=== PATIENT | female | born 1960 | race Caucasian/White ===

== ENCOUNTER 2022-06-20 18:50 | Inpatient (IN) ==
[2022-06-20 20:19] LABS: Basophils # (auto) 0.05 K/uL (0-0.2); Basophils % (auto) 0.5 %; Eosinophils # (auto) 0.35 K/uL (0-0.50); Eosinophils % (auto) 3.7 %; Hematocrit (blood only) 35.8 % (34.1-44.9); Hemoglobin 11.5 g/dl (12.0-16.0); Immature Granulocytes # (auto) 0.05 K/uL (0.00-0.02); Immature Granulocytes % (auto) 0.5 %; Lymphocytes # (auto) 1.79 K/uL (1.2-3.4); Lymphocytes % (auto) 18.8 %; Mean Corpuscular Hemoglobin 27.8 pg (25.0-34.0); Mean Corpuscular Hgb Conc 32.1 g/dL (32.0-36.0); Mean Corpuscular Volume 86.7 fL (80.0-100.0); Mean Platelet Volume 12.2 fL (9.4-12.3); Monocytes # (auto) 0.73 K/uL (0.24-0.82); Monocytes % (auto) 7.7 %; Neutrophils # (auto) 6.57 K/uL (1.4-6.5); Neutrophils % (auto) 68.8 %; Platelet Count 256 K/uL (130-400); RDW Coefficient of Variation 15.1 % (11.5-14.5); RDW Standard Deviation 48.1 fL (36.4-46.3); Red Blood Count 4.13 M/uL (3.93-5.22); White Blood Count 9.54 K/ul (4.8-10.8)
[2022-06-20 20:53] LABS: Albumin Globulin Ratio 1.2 (0.9-2); Albumin Level 3.8 gm/dl (3.4-5.0); BUN Creatinine Ratio 10.9 (10-20); Bilirubin,Total 0.9 mg/dl (0.2-1.0); Calcium 13.1 mg/dl (8.5-10.1); Creatinine Clr Calc Pharmacy 25.9 ml/min; Est GFR (African American) 21.4 ml/min; Est GFR (Non-African American) 18.5 ml/min; Globulin 3.1 gm/dl (2.5-4.0); Magnesium 1.4 mg/dl (1.7-2.4); Potassium 3.2 mmol/L (3.5-5.1); Total Protein 6.9 gm/dl (6.0-8.3)
[2022-06-20] MEDS ORDERED: POTASSIUM CHLORIDE CRTAB 20 MEQ TABCR PO STA (21:32)
[2022-06-20] MEDS ORDERED: SODIUM CHLORIDE 0.9% 1000ML 1,000 ML IV ONE (21:34)
--- NOTE | 2022-06-20 21:35 | Emergency Department Note ---
Impression & Plan Hypercalcemia ADMIT ED Provider Note HPI: The patient is a 62-year-old female with history of chronic kidney disease, hypercalcemia, who presents to the emergency department over concern for hypercalcemia on outpatient lab work. Patient was seen by her transportation solutions manager jose oreilly, outpatient lab work was obtained, patient was noted to have hypercalcemia at 13.3 and was referred to the emergency room for further management. On my initial assessment the patient is resting comfortably in bed, she does state that she has had some muscle spasms in her lower extremities r ecently but otherwise has been largely asymptomatic. She appears comfortable on my exam, she is hemodynamically stable and saturating well on room air on arrival, she is afebrile on arrival. ROS: -Neuro: Hypercalcemia on outpatient lab work -MSK: Myalgias *10 point review systems was conducted and is otherwise negative unless stated above *Outpatient medications and allergy history reviewed PE: General: Alert, NAD HEENT: Normocephalic, atraumatic Eyes: Extraocular eye movement is intact, no scleral erythema Pulmonary: Clear to auscultation bilaterally, no wheezing Cardio: Regular rate and rhythm GI: Abdomen is soft, nontender : No suprapubic tenderness MSK: No evidence of trauma or malformation of the extremities, no edema Skin: No evidence of rash Neuro: Alert, no focal deficits 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 EKG shows atrial fibrillation which the patient does have a his tory, per chart review patient's hypercalcemia is not thought to be mediated by PTH, likely thought to be secondary to an underlying granulomatous disease. I discussed the above findings with the on-call hospitalist, Dr. Beaulieu, the patient was admitted in stable condition for further care. Patient was in agreement to the above plan and she was admitted in stable condition. Diagnosis: 1. Hypercalcemia, acute on chronic 2. Hypomagnesemia 3. Hypokalemia 4. Acute on chronic kidney disease Disposition: Admission Marcus Maddox DO Emergency Medicine Past Med/Surg History Medical History (Updated 06/21/22 @ 00:48 by Marcus Maddox DO) Acute kidney injury Anemia due to chronic kidney disease Atrial fibrillation Chronic kidney disease, stage 4 (severe) Diabetes type 2, controlled Fatigue Hypercalcemia Hypokalemia Lymphadenopathy Type 2 diabetes mellitus, with long-term current use of insulin Vitamin D deficiency Social History Smoking Status: Never smoker Hx Alcohol Use: No Feels Safe at Home: Yes Allergies Allergies Allergy/AdvReac Type Severity Reaction Status Date / Time clarithromycin Allergy Unknown Unverified 06/20/22 11:09 ibuprofen Allergy Verified 06/20/22 11:09 diltiazem [From Cardizem] AdvReac Unknown Headache Unverified 06/20/22 11:09 metformin AdvReac Unknown Nausea Unverified 06/20/22 11:09 naproxen AdvReac Unknown hives Unverified 06/20/22 11:09 nifedipine AdvReac Unknown Headache Unverified 06/20/22 11:09 quinapril AdvReac Unknown Cough Unverified 06/20/22 11:09 Home Meds Home Medications Medication Instructions Recorded Confirmed allopurinol 100 mg tablet 100 mg PO DAILY 04/29/19 06/20/22 venlafaxine 150 mg 150 mg PO DAILY 04/29/19 06/20/22 capsule,extended release 24 hr atorvastatin 40 mg tablet (Lipitor) 40 mg PO DAILY 07/08/19 06/20/22 bupropion HCl 150 mg 24 hr tablet, 150 mg PO QAM 01/04/20 06/20/22 extended release (Wellbutrin XL) aspirin 81 mg tablet,delayed 81 mg PO DAILY 01/08/22 06/20/22 release (Adult Low Dose Aspirin) insulin aspart U-100 100 unit/mL See Rx Instructions subcut TID 01/08/22 06/20/22 (3 mL) subcutaneous pen (Novolog Flexpen U-100 Insulin aspart) apixaban 5 mg tablet (Eliquis) 5 mg PO BID 04/23/22 06/20/22 buspirone 5 mg tablet 5 mg PO TID 06/20/22 06/20/22 carvedilol 25 mg tablet 25 mg PO BID 06/20/22 06/20/22 losartan 50 mg tablet 25 mg PO DAILY 06/20/22 06/20/22 prednisone 10 mg tablet 40 mg PO DAILY 06/20/22 06/20/22 Previous Rx's Medication Instructions Recorded pen needle, diabetic 32 gauge x #500 ea 07/05/21 5/32" (BD Lucinda 2nd Gen Pen Needle) insulin glargine 100 unit/mL (3 32 unit (0.32 mL) subcut BID #60 mL 04/04/22 mL) subcutaneous pen (Basaglar KwikPen U-100 Insulin) pantoprazole 40 mg tablet,delayed 40 mg PO DAILY #30 tabs 05/07/22 release (Protonix) potassium chloride 20 mEq 20 meq PO DAILY #30 tabs 06/14/22 tablet,extended release empagliflozin 10 mg tablet 10 mg PO DAILY #90 tabs 06/20/22 (Jardiance) fluconazole 50 mg tablet 50 mg PO DAILY #90 tabs 06/20/22 Results & Data (ED) Vital Signs Vital Signs - 24 hr 06/20/22 18:59 06/20/22 21:56 06/20/22 21:45 Temperature 36.6 C Temperature Source Temporal Artery Scan Pulse Rate 83 88 Pulse Rate [Apical] 86 Pulse Rate from SpO2 Sensor Respiratory Rate 18 18 Respiratory Effort / Characteristics Non-Labored Spontaneous Respiratory Depth Normal Blood Pressure 119/80 Blood Pressure [Left Arm] 156/89 H Blood Pressure Mean 93 Blood Pressure Mean [Left Arm] 111 Pulse Oximetry 94 92 Oxygen Delivery Method Room Air Room Air Sepsis Recent Fever Within 48 Hours No Sepsis New/Unexplained Change in Mental Status No Sepsis Action Taken by Nursing No Action Required 06/20/22 22:00 06/20/22 23:00 Temperature Temperature Source Pulse Rate 86 79 Pulse Rate [Apical] Pulse Rate from SpO2 Sensor 91 H 78 Respiratory Rate Respiratory Effort / Characteristics Respiratory Depth Blood Pressure 155/81 H 124/79 Blood Pressure [Left Arm] Blood Pressure Mean 105 94 Blood Pressure Mean [Left Arm] Pulse Oximetry 98 96 Oxygen Delivery Method Sepsis Recent Fever Within 48 Hours Sepsis New/Unexplained Change in Mental Status Sepsis Action Taken by Nursing Laboratory Data Result diagrams: 06/20/22 20:02 06/20/22 20:02 Lab Results 06/20/22 06/20/22 06/20/22 Range/Units 20:02 20:02 21:51 WBC 9.54 (4.8-10.8) K/ul RBC 4.13 (3.93-5.22) M/uL Hgb 11.5 L (12.0-16.0) g/dl Hct 35.8 (34.1-44.9) % MCV 86.7 (80.0-100.0) fL MCH 27.8 (25.0-34.0) pg MCHC 32.1 (32.0-36.0) g/dL RDW Std Deviation 48.1 H (36.4-46.3) fL RDW Coeff of Tejal 15.1 H (11.5-14.5) % Plt Count 256 (130-400) K/uL MPV 12.2 (9.4-12.3) fL Immature Gran % (Auto) 0.5 % Neut % (Auto) 68.8 % Lymph % (Auto) 18.8 % [place] % (Auto) 7.7 % Eos % (Auto) 3.7 % Baso % (Auto) 0.5 % Neut # (Auto) 6.57 H (1.4-6.5) K/uL Lymph # (Auto) 1.79 (1.2-3.4) K/uL [place] # (Auto) 0.73 (0.24-0.82) K/uL Eos # (Auto) 0.35 (0-0.50) K/uL Baso # (Auto) 0.05 (0-0.2) K/uL Immature Gran # (Auto) 0.05 H (0.00-0.02) K/uL Sodium 136 (136-145) mmol/L Potassium 3.2 L (3.5-5.1) mmol/L Chloride 101 (98-107) mmol/L Carbon Dioxide 23 (21-32) mmol/L Anion Gap 12 H (3-11) BUN 29 H (6-23) mg/dl Creatinine 2.66 H (0.6-1.2) mg/dl Est Cr Clr Drug Dosing 25.9 ml/min Est GFR ( Amer) 21.4 ml/min Est GFR (Non-Af Amer) 18.5 ml/min BUN/Creatinine Ratio 10.9 (10-20) Glucose 179 H (70-99(Fasting)) mg/dl Calcium 13.1 H* (8.5-10.1) mg/dl Ionized Calcium (1.12-1.32) mmol/L Magnesium 1.4 L (1.7-2.4) mg/dl Total Bilirubin 0.9 (0.2-1.0) mg/dl AST 11 L (13-39) U/L ALT 8 (7-52) U/L Alkaline Phosphatase 84 (34-104) U/L Total Protein 6.9 (6.0-8.3) gm/dl Albumin 3.8 (3.4-5.0) gm/dl Globulin 3.1 (2.5-4.0) gm/dl Albumin/Globulin Ratio 1.2 (0.9-2) SARS-CoV-2, RNA, NAAT NEGATIVE (NEGATIVE) 06/20/22 Range/Units 23:26 WBC (4.8-10.8) K/ul RBC (3.93-5.22) M/uL Hgb (12.0-16.0) g/dl Hct (34.1-44.9) % MCV (80.0-100.0) fL MCH (25.0-34.0) pg MCHC (32.0-36.0) g/dL RDW Std Deviation (36.4-46.3) fL RDW Coeff of Tejal (11.5-14.5) % Plt Count (130-400) K/uL MPV (9.4-12.3) fL Immature Gran % (Auto) % Neut % (Auto) % Lymph % (Auto) % [place] % (Auto) % Eos % (Auto) % Baso % (Auto) % Neut # (Auto) (1.4-6.5) K/uL Lymph # (Auto) (1.2-3.4) K/uL [place] # (Auto) (0.24-0.82) K/uL Eos # (Auto) (0-0.50) K/uL Baso # (Auto) (0-0.2) K/uL Immature Gran # (Auto) (0.00-0.02) K/uL Sodium (136-145) mmol/L Potassium (3.5-5.1) mmol/L Chloride (98-107) mmol/L Carbon Dioxide (21-32) mmol/L Anion Gap (3-11) BUN (6-23) mg/dl Creatinine (0.6-1.2) mg/dl Est Cr Clr Drug Dosing ml/min Est GFR ( Amer) ml/min Est GFR (Non-Af Amer) ml/min BUN/Creatinine Ratio (10-20) Glucose (70-99(Fasting)) mg/dl Calcium (8.5-10.1) mg/dl Ionized Calcium 1.71 H* (1.12-1.32) mmol/L Magnesium (1.7-2.4) mg/dl Total Bilirubin (0.2-1.0) mg/dl AST (13-39) U/L ALT (7-52) U/L Alkaline Phosphatase (34-104) U/L Total Protein (6.0-8.3) gm/dl Albumin (3.4-5.0) gm/dl Globulin (2.5-4.0) gm/dl Albumin/Globulin Ratio (0.9-2) SARS-CoV-2, RNA, NAAT (NEGATIVE) Administered Medications Discontinued Medications Fluconazole (Fluconazole 50 Mg Tab) 50 mg PO NOW ONE Stop: 06/20/22 22:23 Last Admin: 06/20/22 23:24 Dose: 50 mg Documented By: LUCILLE Magnesium Sulfate/Dextrose (Magnesium Sulfate / D5w) 1 gm in 100 mls @ 100 mls/hr IV Q1H SAMEER Stop: 06/20/22 23:32 Last Admin: 06/20/22 23:24 Dose: 100 mls/hr Documented By: Infusion: 06/20/22 22:47 Dose: 100 mls/hr Documented By: Admin: 06/20/22 21:47 Dose: 100 mls/hr Documented By: CASSANDRA Sodium Chloride (Nss 1000ml) 1,000 mls @ 999 mls/hr IV .Q1H1M ONE Stop: 06/20/22 22:34 Last Infusion: 06/20/22 23:52 Dose: 0 mls/hr Documented By: Admin: 06/20/22 21:47 Dose: 999 mls/hr Documented By: CASSANDRA Potassium Chloride (Potassium Chloride Crtab 20 Meq Tabcr) 40 meq PO NOW STA Stop: 06/20/22 21:33 Last Admin: 06/20/22 21:46 Dose: 40 meq Documented By: CASSANDRA Prednisone (Prednisone 20 Mg Tab) 40 mg PO NOW STA Stop: 06/20/22 22:23 Last Admin: 06/20/22 23:24 Dose: 40 mg Documented By: BS Discharge Plan Visit Data Chief Complaint: Line Placement Stated Complaint: IV FLUIDS ED Provider: Marcus Maddox Discharge Problem: Hypercalcemia Forms Stand Alone Forms: My [facility] Prescriptions Prescriptions: No Action (DME) pen needle, diabetic [BD Lucinda 2nd Gen Pen Needle] 32 gauge x 5/32" needle See Rx Instructions .Route Qty: 500 3RF Rx Instructions: use 5 x daily with insulin Basaglar KwikPen U-100 Insulin 100 unit/mL (3 mL) insulin pen 32 unit SQ BID Qty: 60 1RF pantoprazole [Protonix] 40 mg tablet,delayed release (DR/EC) 40 mg PO DAILY Qty: 30 11RF potassium chloride 20 mEq tablet extended release 20 meq PO DAILY Qty: 30 2RF Rx Instructions: Please take 2 tab bid today and then continue 1 tab daily. Jardiance 10 mg tablet 10 mg PO DAILY Qty: 90 3RF atorvastatin [Lipitor] 40 mg tablet 40 mg PO DAILY insulin aspart U-100 [Novolog Flexpen U-100 Insulin] 100 unit/mL (3 mL) insulin pen See Rx Instructions subcut TID Rx Instructions: 10-20 units 1:2 carb ratio TDD 100 units subcut three times a day; aspirin [Adult Low Dose Aspirin] 81 mg tablet,delayed release (DR/EC) 81 mg PO DAILY buspirone 5 mg tablet 5 mg PO TID carvedilol 25 mg tablet 25 mg PO BID Rx Instructions: must administer with a meal/food losartan 50 mg tablet 25 mg PO DAILY fluconazole 50 mg tablet 50 mg PO DAILY Qty: 90 3RF Eliquis 5 mg tablet 5 mg PO BID bupropion HCl [Wellbutrin XL] 150 mg tablet extended release 24 hr 150 mg PO QAM allopurinol 100 mg tablet 100 mg PO DAILY venlafaxine 150 mg capsule,extended release 24hr 150 mg PO DAILY prednisone 10 mg tablet 40 mg PO DAILY Rx Instructions: Taper: 40mg po daily x 3, 30mg po daily x 3, 20mg po daily x 3 then 10mg PO dailyl Referrals Referrals: Camilo Grossman D.O. [Primary Care Provider] -
[2022-06-20] MEDS: MAGNESIUM SULFATE / D5W 1 GM/100 ML BAG IV SCH ×2 (21:47→23:24)
[2022-06-20] MEDS ORDERED: predniSONE 20 MG TAB PO STA (22:22)
[2022-06-20] MEDS ORDERED: FLUCONAZOLE 50 MG TAB PO ONE (22:22)
--- NOTE | 2022-06-20 22:23 | History & Physical Report ---
Date of Service June 20, 2022 Assessment & Plan (1) Hypercalcemia: Plan: Patient with moderate hypercalcemia with calcium = 13.1, ionized calcium = 1.71. She is mildly symptomatic with report of muscle cramping and dizziness. Patient with known history of hypercalcemia and has had extensive work-up in the past. Hypercalcemia is non-PTH mediated. Thought to be secondary to possible granulomatous disease. She presently follows with nephrology. Most recent labs revealed low PTH, normal TSH, normal iron, normal vitamin D Admit to medical Continue steroidsprednisone 40 mg now and daily x3 days and continue on taper Continue fluconazole 50 mg p.o. daily IV resuscitation with normal saline at 80 mL/h x 2 L Repeat chemistry with ionized calcium in the morning We will avoid treatment with calcitonin as patient felt ill after receiving it during her previous hospitalization Consider nephrology consultation (2) Diabetes type 2, controlled: Plan: Patient with diabetes 2. Well-controlled with last hemoglobin A1c on 12/31/2021 = 6.5. Her home medications include empagliflozin as well as insulin aspart and glargine Lantus 18 units twice daily Insulin sliding scale Goal blood sugar 110-140 (3) Chronic kidney disease, stage 4 (severe): Plan: BUN and creatinine are near baseline. Patient reports adequate urine output. She has had an AV fistula placed in the left upper extremity and is waiting for maturity Avoid nephrotoxic agents Renal dosing were needed Chemistry in the morning (4) Dyslipidemia: Plan: Chronic. Stable. Continue atorvastatin 40 mg p.o. daily (5) Gout: Plan: Chronic. Stable. Continue allopurinol 100 mg p.o. daily (6) Hypertension: Plan: Blood pressure controlled. Presently 124/79 Continue carvedilol 25 mg p.o. twice daily -Continue losartan 25 mg p.o. daily Continue to monitor (7) Depression: Plan: Chronic. Stable. Continue buspirone 5 mg p.o. 3 times daily (8) Atrial fibrillation: Plan: Chronic. Rate controlled. Continue apixaban 5 mg p.o. twice daily Continue carvedilol 25 mg p.o. twice daily F-E-Nnormal saline at 80 mL/h x 2 L, continue potassium supplementation 20 mEq daily, magnesium replacement with 2 g IV and repeat level in the morning, carb consistent diet as tolerated Ppx:continue home apixaban 5 mg p.o. daily for history of atrial fibrillation Codefull per discussion with patient Dispoadmit to medical History of Present Illness Chief Complaint: hypercalcemia Primary Care Provider: Camilo Grossman Concepcion Soliman is a 62yo female with history of CKD stage 4, DM, and hypercalcemia presenting with hypercalcemia. Patient with history of hypercalcemia for which she has had extensive work-up in the past. Her hypercalcemia is not PTH mediated. She was found to have an elevated 125 dihydroxy vitamin D level at 88 in the past. She has had normal parathyroid related peptide and SANDRA levels as well as paraproteinemia work-up. She had a bone marrow biopsy performed which was unremarkable. She has CT of the abdomen and pelvis that showed slight increase in chest and upper abdominal lymphadenopathy. Patient's hypercalcemia thought to be secondary to granulomatous disease, thus far undiagnosed. She was seen by surgery at [facility] for possible lymph node biopsy which was not performed due to small size and complicate locations of her nodes. Patient follows with Nephrology, last seen on 06/19/2022. She has been treated with prednisone as well as fluconazole for her hypercalcemia. During her most recent visit on 06/19/2022 her prednisone was increased from 10 mg daily to 40 mg taper (40 mg x 3 days, 30 mg x 3 days, 20 mg x 3 days then 10 mg daily) she was also restarted on her oral fluconazole. Labs were obtained which revealed calcium of 13.3. She had a normal iron panel, and normal 25 hydroxy vitamin D level and a low PTH intact level. Patient was instructed to come to the hospital for her elevated calcium level. Patient was recently mated to [facility] from 05/26/2022 to 05/31/2022 for hypercalcemia. She does report receiving calcitonin during that hospital stay after which she became ill. She was discharged on Lasix. Patient does complain of occasional leg cramps as well as persistent nausea, dizziness and imbalance. She denies fevers, chills, chest pain, cough, shortness of breath, abdominal pain, vomiting or diarrhea. Denies constipation. She states that her food does not taste good and she has not been eating well at home resulting in approximately 25 pounds of unintentional weight loss since May 2022. No additional complaints at this time Allergies Allergy/AdvReac Type Severity Reaction Status Date / Time clarithromycin Allergy Unknown Unverified 06/20/22 11:09 ibuprofen Allergy Verified 06/20/22 11:09 diltiazem [From Cardizem] AdvReac Unknown Headache Unverified 06/20/22 11:09 metformin AdvReac Unknown Nausea Unverified 06/20/22 11:09 naproxen AdvReac Unknown hives Unverified 06/20/22 11:09 nifedipine AdvReac Unknown Headache Unverified 06/20/22 11:09 quinapril AdvReac Unknown Cough Unverified 06/20/22 11:09 Home Medications Medication Instructions Recorded Confirmed Type allopurinol 100 mg tablet 100 mg PO DAILY 04/29/19 06/20/22 History venlafaxine 150 mg 150 mg PO DAILY 04/29/19 06/20/22 History capsule,extended release 24 hr atorvastatin 40 mg tablet (Lipitor) 40 mg PO DAILY 07/08/19 06/20/22 History bupropion HCl 150 mg 24 hr tablet, 150 mg PO QAM 01/04/20 06/20/22 History extended release (Wellbutrin XL) pen needle, diabetic 32 gauge x #500 ea 07/05/21 06/20/22 Rx 5/32" (BD Lucinda 2nd Gen Pen Needle) aspirin 81 mg tablet,delayed 81 mg PO DAILY 01/08/22 06/20/22 History release (Adult Low Dose Aspirin) insulin aspart U-100 100 unit/mL See Rx Instructions subcut TID 01/08/22 06/20/22 History (3 mL) subcutaneous pen (Novolog Flexpen U-100 Insulin aspart) insulin glargine 100 unit/mL (3 32 unit (0.32 mL) subcut BID #60 mL 04/04/22 06/20/22 Rx mL) subcutaneous pen (Basaglar KwikPen U-100 Insulin) apixaban 5 mg tablet (Eliquis) 5 mg PO BID 04/23/22 06/20/22 History pantoprazole 40 mg tablet,delayed 40 mg PO DAILY #30 tabs 05/07/22 06/20/22 Rx release (Protonix) potassium chloride 20 mEq 20 meq PO DAILY #30 tabs 06/14/22 06/20/22 Rx tablet,extended release buspirone 5 mg tablet 5 mg PO TID 06/20/22 06/20/22 History carvedilol 25 mg tablet 25 mg PO BID 06/20/22 06/20/22 History empagliflozin 10 mg tablet 10 mg PO DAILY #90 tabs 06/20/22 06/20/22 Rx (Jardiance) fluconazole 50 mg tablet 50 mg PO DAILY #90 tabs 06/20/22 06/20/22 Rx losartan 50 mg tablet 25 mg PO DAILY 06/20/22 06/20/22 History prednisone 10 mg tablet 40 mg PO DAILY 06/20/22 06/20/22 History Past Med/Surg History Medical History (Updated 06/21/22 @ 00:08 by Lisa Beaulieu DO) Acute kidney injury Anemia due to chronic kidney disease Atrial fibrillation Chronic kidney disease, stage 4 (severe) Diabetes type 2, controlled Fatigue Hypercalcemia Hypokalemia Lymphadenopathy Type 2 diabetes mellitus, with long-term current use of insulin Vitamin D deficiency Social History Smoking Status: Never smoker Hx Alcohol Use: No Feels Safe at Home: Yes Review of Systems Review of Systems: All systems reviewed & are unremarkable except as noted in HPI & below Physical Exam Physical Exam: General: patient resting comfortably, NAD, non-toxic in appearance, AA&O x 4 Skin: warm, dry, intact, no rashes or lesions HEENT: NC/AT, PERRL, EOMI, anicteric sclera, conjunctiva without injection, external ear normal to inspection and nontender, nares patent, dry mucus membranes, dentition intact, no oropharyngeal lesions, neck supple, trachea midline, no LAD, no thyromegaly, no JVD Heart: +S1/S2, regular, no m/r/g Lungs: equal air entry bilaterally, no rales/rhonchi/wheezes Abd: +BS, soft, NT/ND, no masses/organomegaly/ascites Ext: warm, 2+ pulses in UE/LE bilaterally, no clubbing/cyanosis or edema Neuro: nonfocal, patient AA&O x 4, speech intact, no facial droop, moving all extremities on command with equal strength 5/5 Results & Data Results & Data ([facility]) Vital Signs (Past 12 Hours) Vital Signs Temp Pulse Pulse Resp BP BP Pulse Ox 06/20/22 21:56 86 18 156/89 H 92 06/20/22 18:59 36.6 C 83 18 119/80 94 O2 Del Method 06/20/22 21:56 Room Air 06/20/22 18:59 Room Air Laboratory Results Laboratory Results WBC 9.54 K/ul (4.8-10.8) 06/20/22 20:02 RBC 4.13 M/uL (3.93-5.22) 06/20/22 20:02 Hgb 11.5 g/dl (12.0-16.0) L 06/20/22 20:02 Hct 35.8 % (34.1-44.9) 06/20/22 20:02 MCV 86.7 fL (80.0-100.0) 06/20/22 20: MCH 27.8 pg (25.0-34.0) 06/20/22 20: MCHC 32.1 g/dL (32.0-36.0) 06/20/22 20:02 RDW Std Deviation 48.1 fL (36.4-46.3) H 06/20/22 20:02 RDW Coeff of Tejal 15.1 % (11.5-14.5) H 06/20/22 20:02 Plt Count 256 K/uL (130-400) 06/20/22 20:02 MPV 12.2 fL (9.4-12.3) 06/20/22 20:02 Immature Gran % (Auto) 0.5 % 06/20/22 20:02 Neut % (Auto) 68.8 % 06/20/22 20:02 Lymph % (Auto) 18.8 % 06/20/22 20:02 [place] % (Auto) 7.7 % 06/20/22 20:02 Eos % (Auto) 3.7 % 06/20/22 20:02 Baso % (Auto) 0.5 % 06/20/22 20:02 Neut # (Auto) 6.57 K/uL (1.4-6.5) H 06/20/22 20:02 Lymph # (Auto) 1.79 K/uL (1.2-3.4) 06/20/22 20:02 [place] # (Auto) 0.73 K/uL (0.24-0.82) 06/20/22 20:02 Eos # (Auto) 0.35 K/uL (0-0.50) 06/20/22 20:02 Baso # (Auto) 0.05 K/uL (0-0.2) 06/20/22 20:02 Immature Gran # (Auto) 0.05 K/uL (0.00-0.02) H 06/20/22 20:02 Sodium 136 mmol/L (136-145) 06/20/22 20:02 Potassium 3.2 mmol/L (3.5-5.1) L 06/20/22 20:02 Chloride 101 mmol/L (98-107) 06/20/22 20:02 Carbon Dioxide 23 mmol/L (21-32) 06/20/22 20:02 Anion Gap 12 (3-11) H 06/20/22 20:02 BUN 29 mg/dl (6-23) H 06/20/22 20:02 Creatinine 2.66 mg/dl (0.6-1.2) H 06/20/22 20:02 Est Cr Clr Drug Dosing 25.9 ml/min 06/20/22 20:02 Est GFR ( Amer) 21.4 ml/min 06/20/22 20:02 Est GFR (Non-Af Amer) 18.5 ml/min 06/20/22 20:02 BUN/Creatinine Ratio 10.9 (10-20) 06/20/22 20:02 Glucose 179 mg/dl (70-99(Fasting)) H 06/20/22 20:02 Calcium 13.1 mg/dl (8.5-10.1) H* 06/20/22 20:02 Ionized Calcium 1.71 mmol/L (1.12-1.32) H* 06/20/22 23:26 Magnesium 1.4 mg/dl (1.7-2.4) L 06/20/22 20:02 Total Bilirubin 0.9 mg/dl (0.2-1.0) 06/20/22 20:02 AST 11 U/L (13-39) L 06/20/22 20:02 ALT 8 U/L (7-52) 06/20/22 20:02 Alkaline Phosphatase 84 U/L (34-104) 06/20/22 20:02 Total Protein 6.9 gm/dl (6.0-8.3) 06/20/22 20:02 Albumin 3.8 gm/dl (3.4-5.0) 06/20/22 20:02 Globulin 3.1 gm/dl (2.5-4.0) 06/20/22 20:02 Albumin/Globulin Ratio 1.2 (0.9-2) 06/20/22 20:02 SARS-CoV-2, RNA, NAAT NEGATIVE (NEGATIVE) 06/20/22 21:51 ECG Additional Comments: EKG shows atrial fibrillation at 89 bpm, QRS = 92, QTc = 41, Code Status & VTE Plan VTE Prophylaxis Plan VTE Prophylaxis will be ordered: Yes PG Care Time/CCT Total # of Minutes Spent Total Time Spent with Patient: Total time spent is greater than 50% in coordination of care (as documented) at patient's floor/unit and/or counseling patient: Coding Level of Care Code 49375 Initial Inpt Care Lvl 3 Diagnoses Hypercalcemia E83.52 Diabetes type 2, controlled E11.9 Chronic kidney disease, stage 4 (severe) N18.4 Dyslipidemia E78.5 Gout M10.9 Hypertension I10 Depression F32.9 Atrial fibrillation I48.91
[2022-06-21 01:02] LABS: Appearance Urine Clear (Clear); Bacteria Urine Automated Negative (Negative); Bilirubin Urine Negative (Negative); Blood Urine Negative (Negative); Color Urine Yellow; Epithelial Cell Urine Auto >30 /lpf (0-5); Glucose Urine UA 3+ (Negative); Ketones Urine Negative (Negative); Leukocyte Esterase Urine Negative (Negative); Nitrite Urine Negative (Negative); Protein Urine 2+ (Negative); RBC Urine Automated 0-4 /hpf (0-4); Specific Gravity Urine 1.015 (1.000-1.030); Urobilinogen Urine Negative (Negative)
[2022-06-21] MEDS ORDERED: CARBOHYDRATES FOR HYPOGLYCEMIA PO PRN (02:05)
[2022-06-21] MEDS ORDERED: ACETAMINOPHEN 325 MG TAB PO PRN (02:05)
[2022-06-21] MEDS ORDERED: GLUCOSE 10 TAB/TUBE PO PRN (02:05)
[2022-06-21] MEDS ORDERED: DEXTROSE 50% 50 ML SYRINGE IV PRN (02:05)
[2022-06-21] MEDS ORDERED: GLUCOSE 40% GEL 15 GM TUBE PO PRN (02:05)
[2022-06-21] MEDS ORDERED: GLUCAGON FOR INJ 1 MG VIAL SQ PRN (02:05)
[2022-06-21] MEDS ORDERED: ONDANSETRON INJ 2 MG/ML 2 ML VIAL IV PRN (02:05)
[2022-06-21] MEDS: SODIUM CHLORIDE 0.9% 1000ML 1,000 ML IV SCH ×2 (02:41→15:19)
[2022-06-21] MEDS: MAGNESIUM SULFATE / D5W 1 GM/100 ML BAG IV SCH ×2 (03:01→05:02)
[2022-06-21 03:56] LABS: Phosphorus 3.8 mg/dl (2.5-4.9)
--- NOTE | 2022-06-21 07:22 | Hospitalist Progress Note ---
Date of Service June 21, 2022 Assessment & Plan (1) Hypercalcemia: Plan: Hypercalcemia - Calcium on admission= 13.1, ionized= 1.71; repeat this morning= 12.4, ionized= 1.67 - No longer symptomatic - She has a history of hypercalcemia and has been worked up extensively for it. Non-PTH mediated Thought to be secondary to possible granulomatous disease. Continue prednisone taper as per nephrology recommendations - 40 mg x 3 days, 30 mg x 3 days, 20 mg x 3 days then 10 mg daily Continue fluconazole 50 mg p.o. daily IV resuscitation with normal saline at 80 mL/h x 3 L Continue to trend chemistry with ionized calcium We will avoid treatment with calcitonin as patient felt ill after receiving it during her previous hospitalization Nephrology is following DM2 Patient with diabetes 2. Well-controlled with last hemoglobin A1c on 12/31/2021 = 6.5. Her home medications include empagliflozin as well as insulin aspart and glargine Lantus 18 units twice daily Insulin sliding scale Goal blood sugar 110-140 CKD4 Creatinine are near baseline (2.66; BL= 2.5-3.5). Patient reports adequate urine output. She has had an AV fistula placed in the left upper extremity and is waiting for maturity Avoid nephrotoxic agents Renal dosing were needed Continue to trend Gout Chronic. Stable. Continue allopurinol 100 mg p.o. daily Dyslipidemia Chronic. Stable. Continue atorvastatin 40 mg p.o. daily HTN Blood pressure well controlled Continue carvedilol 25 mg p.o. twice daily -Continue losartan 25 mg p.o. daily Continue to monitor Depression Chronic. Stable. Continue buspirone 5 mg p.o. 3 times daily Atrial Fibrillation Chronic. Rate controlled. Continue apixaban 5 mg p.o. twice daily Continue carvedilol 25 mg p.o. twice daily Ppx:continue home apixaban 5 mg p.o. daily for history of atrial fibrillation Codefull per discussion with patient (2) Diabetes type 2, controlled: (3) Chronic kidney disease, stage 4 (severe): (4) Dyslipidemia: (5) Gout: (6) Hypertension: (7) Depression: (8) Atrial fibrillation: Admission and Anticipated Discharge Date Admission Date: June 20, 2022 Supervising Physician Co-Signing Physician Notes Attending attestation Pt seen and examined in concert with Dr. Cuellar. In agreement with the documented findings as noted in the resident documentation with any exceptions or additions as noted here. Improved cramping of the abdomen and bilateral upper and lower extremities without lightheadedness or similar. VS, nursing notes, imaging, labs and ED documentation reviewed. On examination, S1/S2 nl RRR no MCG. CTAB. Abd NT/ND BS+ve Hypercalcemia - nephrology consult - IV fluids, prednisone, fluconazole. Trend BMP and iCa CKDIV - avoid nephrotoxic agents Else see resident documentation as noted. Subjective 62 year old female with a past medical history of CKD stage 4, DM, and hypercalcemia presenting with hypercalcemia. She has a history of hypercalcemia that she has been worked up for in the past. Not mediated by PTH. Elevated elevated 125 dihydroxy vitamin D level at 88 prior, normal parathyroid related peptide and SANDRA levels. Normal paraproteinemia workup, normal bone marrow biopsy. CT abdomen/pelvis slight lymphadenopathy. Working diagnosis is that it is secondary to granulomatous disease which has not been diagnosed. Follows with nephrology and treated with prednisone/fluconazole. Prednisone increased to 40mg taper on 06/19. Labs from that visit showed a calcium= 13.3 and she was instructed to come to ED. She is no longer having leg cramping, nausea or dizziness. She denies any chest pain, LE edema, dyspnea. No complainants this morning. Physical Exam Physical Exam: Constitutional: well-appearing, no acute distress HEENT: NCAT, no conjunctival injection CV: regular rhythm, no murmur appreciated, extremities well-perfused, no LE edema Resp: CTABL, no wheezes/rales/rhonchi appreciated, no increased work of breathing GI: soft, nondistended, nontender, BS normoactive MSK: no gross deformities appreciated Skin: warm, dry, no rash appreciated Neuro: alert, oriented, no focal neurologic deficit appreciated Results & Data Results & Data ([facility]) Vital Signs (Past 12 Hours) Vital Signs Temp Pulse Pulse Resp BP BP Pulse Ox 06/21/22 02:51 36.9 C 85 18 134/85 96 06/21/22 01:00 78 146/73 H 96 06/21/22 00:30 82 96 06/21/22 00:00 78 130/96 95 06/20/22 23:00 79 124/79 96 06/20/22 22:00 86 155/81 H 98 06/20/22 21:45 88 06/20/22 21:56 86 18 156/89 H 92 O2 Del Method 06/21/22 02:51 Room Air 06/21/22 01:00 06/21/22 00:30 06/21/22 00:00 06/20/22 23:00 06/20/22 22:00 06/20/22 21:45 06/20/22 21:56 Room Air Resident Activity Tracking Resident Involvement: Resident Care Provided Care Provided: Adult Hospital Medicine
[2022-06-21] MEDS: INSULIN ASPART PER UNIT SC SCH ×4 (08:23→21:26)
[2022-06-21] MEDS: LANTUS PER UNIT CHARGE SQ SCH ×2 (08:24→21:26)
[2022-06-21] MEDS: PANTOprazole 40 MG TAB PO SCH (08:28)
[2022-06-21] MEDS: APIXABAN 5 MG TABLET PO SCH ×2 (08:29→21:15)
[2022-06-21] MEDS: POTASSIUM CHLORIDE CRTAB 20 MEQ TABCR PO SCH (08:29)
[2022-06-21] MEDS: busPIRone 5 MG TAB PO SCH ×3 (08:29→21:15)
[2022-06-21] MEDS: predniSONE 10 MG TABLET PO SCH (08:29)
[2022-06-21] MEDS: carvediloL 25 MG TAB PO SCH ×2 (08:29→21:14)
[2022-06-21] MEDS: ASPIRIN 81 MG ECTAB PO SCH (08:29)
[2022-06-21] MEDS: ATORVASTATIN 40 MG TAB PO SCH (08:29)
[2022-06-21] MEDS: FLUCONAZOLE 50 MG TAB PO SCH (08:30)
[2022-06-21] MEDS: allopurinoL 100 MG TAB PO SCH (08:30)
[2022-06-21] MEDS: LOSARTAN POTASSIUM 25 MG TAB PO SCH (08:30)
--- NOTE | 2022-06-21 09:50 | Nephrology Consultation ---
Date of Consultation June 21, 2022 Assessment & Plan (1) Hypercalcemia: (2) Chronic kidney disease, stage 4 (severe): (3) Hypokalemia: (4) Fatigue: (5) Anemia due to chronic kidney disease: (6) Diabetes type 2, controlled: (7) Hypertension: Plan 62-year-old female with stage IV CKD secondary to diabetic nephropathy, baseline creatinine around 2.5-3. Developed a hypercalcemia over last few months and workup suggestive of non PTH mediated hypercalcemia secondary to possibly granulomatous disease although lymph node biopsy was not possible because of the small size and location. As previously she was on prednisone and Fluconazole with improvement in calcium however since prednisone was tapered off intracanal so was decreased because of hyperkalemia, recent lab showed a calcium again went up to close to 13. She was admitted to hospital yesterday for hypercalcemia and associated nonspecific symptoms. Also started back on prednisone and increase the Fluconazole. This morning she is feeling much better, repeat calcium level pending. Hb has been stable. -- continue on IV fluid, encouraged to increase fluid intake orally. Expect calcium to slowly start to improve. -- Continue on fluconazole 50 mg daily and prednisone 40 mg daily and decrease by 10 mg every 3 days and then continue on 10 mg daily -- check renal function, electrolyte and calcium daily -- if calcium continue to improve and she is otherwise feeling well hopefully she can be discharged tomorrow Will follow History of Present Illness Reason for Consultation: Hypercalcemia Attending Physician: New Artis MD History of Present Illness Gabe is a 62yo female with history of CKD stage 4, DM, and hypercalcemia admitted with hypercalcemia. Nephrology consult requested for further management. EMR records were reviewed during visit. Concepcion has h/o hypercalcemia most likely secondary to granulomatous disease, previous was of showed suppressed PTH but 125 dihydroxy vitamin-D 3 elevated at 88. PTHrP, Rodney level was normal. CT C/A/P showed slight increase in chest and upper abdominal lymphadenopathy. Paraproteinemia workup was unremarkable. She has not been on any calcium or vitamin-D supplement. None of the lymph nodes within chest or abdomen is big enough or the location to safely get a biopsy. seen by Oncology, had a bone marrow biopsy and she was told that biopsy was otherwise unremarkable however report is not available to review. end previously she was started on prednisone and fluconazole. Prednisone was tapered off as Calcium stayed normal. Developed acute hyperkalemia with high- dose Fluconazole and Fluconazole was decreased to 25 mg as a month ago. Recently she actually developed critical hypokalemia, calcium potassium was 2.8 and started on supplement. During clinic follow-up yesterday she was complaining of feeling weak and tired as well as having some nonspecific GI symptoms. Fluconazole was increased back to 50 mg daily and started on prednisone taper starting at 40 mg yesterday. lab received after the visit done day before yesterday at an outside facility showed calcium again increased to 12.5. With her above symptoms and elevated calcium she was advised to go to ER. On admission to hospital she was noted to have calcium even higher at 13.1 and she was started on IV normal saline. Labs from this morning currently pending but overall she is feeling slightly better. Vital sign has been stable. Has stage 4 CKD, secondary to diabetic nephropathy b/l cr 2.5 to 3.0. Has moderate degree proteinuria. She has history of recurrent nephrolithiasis, in December 2018 she had 2 mm right ureteral stone with mild hydronephrosis which she eventually passed, now has multiple left-sided small nephrolithiasis. No history of chronic NSAID use. No history of autoimmune disorder. CT abdomen pelvis showed otherwise normal size kidney.She had renal replacement therapy education session and did not feel that she can manage PD at home because of her home situation. Will plan for in center hemodialysis in future when renal replacement therapy needed. Had the transposition of left arm AV fistula on 01/31/2022. Hypertension has been well controlled on carvedilol, losartan. She was also found to have incidental adrenal nodule on CT scan in December 2018. Has diabetes for more than 20 years, poorly controlled, no history of retinopathy. No history of coronary artery disease, previously had cardiac catheterization almost 10 y ears ago, unremarkable, recently had stress test which was negative. Recently she was hospitalized at [facility] in mid May with AFib with RVR, has been on Xarelto and carvedilol. During discharge she was started on Lasix 80 mg daily and has not been taking any potassium supplement. recently she was also noted to have blood pressure running low and losartan was decreased to 25 mg daily. Lasix was stopped yesterday. overall she is feeling better this morning. Denies shortness of breath or chest pain. Abdominal discomfort improve somewhat. Allergies Allergy/AdvReac Type Severity Reaction Status Date / Time clarithromycin Allergy Unknown Unverified 06/20/22 11:09 ibuprofen Allergy Verified 06/20/22 11:09 diltiazem [From Cardizem] AdvReac Unknown Headache Unverified 06/20/22 11:09 metformin AdvReac Unknown Nausea Unverified 06/20/22 11:09 naproxen AdvReac Unknown hives Unverified 06/20/22 11:09 nifedipine AdvReac Unknown Headache Unverified 06/20/22 11:09 quinapril AdvReac Unknown Cough Unverified 06/20/22 11:09 Home Medications Medication Instructions Recorded Confirmed Type allopurinol 100 mg tablet 100 mg PO DAILY 04/29/19 06/20/22 History venlafaxine 150 mg 150 mg PO DAILY 04/29/19 06/20/22 History capsule,extended release 24 hr atorvastatin 40 mg tablet (Lipitor) 40 mg PO DAILY 07/08/19 06/20/22 History bupropion HCl 150 mg 24 hr tablet, 150 mg PO QAM 01/04/20 06/20/22 History extended release (Wellbutrin XL) pen needle, diabetic 32 gauge x #500 ea 07/05/21 06/20/22 Rx 5/32" (BD Lucinda 2nd Gen Pen Needle) aspirin 81 mg tablet,delayed 81 mg PO DAILY 01/08/22 06/20/22 History release (Adult Low Dose Aspirin) insulin aspart U-100 100 unit/mL See Rx Instructions subcut TID 01/08/22 06/20/22 History (3 mL) subcutaneous pen (Novolog Flexpen U-100 Insulin aspart) insulin glargine 100 unit/mL (3 32 unit (0.32 mL) subcut BID #60 mL 04/04/22 06/20/22 Rx mL) subcutaneous pen (Basaglar KwikPen U-100 Insulin) apixaban 5 mg tablet (Eliquis) 5 mg PO BID 04/23/22 06/20/22 History pantoprazole 40 mg tablet,delayed 40 mg PO DAILY #30 tabs 05/07/22 06/20/22 Rx release (Protonix) potassium chloride 20 mEq 20 meq PO DAILY #30 tabs 06/14/22 06/20/22 Rx tablet,extended release buspirone 5 mg tablet 5 mg PO TID 06/20/22 06/20/22 History carvedilol 25 mg tablet 25 mg PO BID 06/20/22 06/20/22 History empagliflozin 10 mg tablet 10 mg PO DAILY #90 tabs 06/20/22 06/20/22 Rx (Jardiance) fluconazole 50 mg tablet 50 mg PO DAILY #90 tabs 06/20/22 06/20/22 Rx losartan 50 mg tablet 25 mg PO DAILY 06/20/22 06/20/22 History prednisone 10 mg tablet 40 mg PO DAILY 06/20/22 06/20/22 History Patient History Medical History (Updated 06/21/22 @ 00:48 by Marcus Maddox DO) Acute kidney injury Anemia due to chronic kidney disease Atrial fibrillation Chronic kidney disease, stage 4 (severe) Diabetes type 2, controlled Fatigue Hypercalcemia Hypokalemia Lymphadenopathy Type 2 diabetes mellitus, with long-term current use of insulin Vitamin D deficiency Social History Smoking Status: Never smoker Second Hand Exposure: No; Hx Alcohol Use: No Hx Substance Use: No Preferred Language: Mozambican Communication Ability: Effective Furniture Mover Driver Required: No Beliefs That Will Affect Care: None Current Living Situation: Alone Feels Safe at Home: Yes Assistive Devices: None Review of Systems Review of Systems: All systems reviewed & are unremarkable except as noted in HPI & below Physical Exam Constitutional: WD/WN, vitals as above + obese; no acute distress Eyes: + anicteric sclerae ENMT: Ears: no hearing impairment Neck: normal visual inspection Respiratory: normal respiratory effort; no respiratory distress and no cough Auscultation: lungs clear to auscultation bilaterally Cardiovascular: Rate/Rhythm: regular rate and regular rhythm Heart Sounds: normal S1 and normal S2 Extremities: no edema Gastrointestinal (Abdomen): Inspection/Auscultation: abdomen normal to inspection and normal bowel sounds Percussion/Palpation: abdomen soft; abdomen nontender Musculoskeletal: Extremities: extremities normal to inspection Skin: no rashes Neurologic: no focal motor deficits and not confused Psychiatric: Orientation: alert and oriented x 3 Affect: euthymic affect Results & Data ([facility]) Vital Signs (Past 12 Hours) Vital Signs Temp Pulse Pulse Pulse Resp BP BP 06/21/22 07:00 36.6 C 103 H 20 06/21/22 02:51 36.9 C 85 18 134/85 06/21/22 01:00 78 146/73 H 06/21/22 00:30 82 06/21/22 00:00 78 130/96 06/20/22 23:00 79 124/79 06/20/22 22:00 86 155/81 H 06/20/22 21:56 86 18 156/89 H BP Pulse Ox O2 Del Method 06/21/22 07:00 111/66 92 Room Air 06/21/22 02:51 96 Room Air 06/21/22 01:00 96 06/21/22 00:30 96 06/21/22 00:00 95 06/20/22 23:00 96 06/20/22 22:00 98 06/20/22 21:56 92 Room Air PG Care Time/CCT Total # of Minutes Spent Total Time Spent with Patient: Total time spent is greater than 50% in coordination of care (as documented) at patient's floor/unit and/or counseling patient: Coding Level of Care Code 17071 Initial Inpt Care Lvl 3 Diagnoses Hypercalcemia E83.52 Chronic kidney disease, stage 4 (severe) N18.4 Hypokalemia E87.6 Fatigue R53.83 Anemia due to chronic kidney disease N18.9; D63.1 Diabetes type 2, controlled E11.9 Hypertension I10
[2022-06-21 10:38] LABS: BUN Creatinine Ratio 11.2 (10-20); Calcium 12.4 mg/dl (8.5-10.1); Creatinine Clr Calc Pharmacy 25.9 ml/min; Est GFR (African American) 21.2 ml/min; Est GFR (Non-African American) 18.3 ml/min; Magnesium 2.3 mg/dl (1.7-2.4); Potassium 3.6 mmol/L (3.5-5.1)
--- NOTE | 2022-06-21 13:11 | Electrocardiogram Report ---
Test Reason : Blood Pressure : / mmHG Vent. Rate : 089 BPM Atrial Rate : 326 BPM P-R Int : 000 ms QRS Dur : 092 ms QT Int : 396 ms P-R-T Axes : 000 007 262 degrees QTc Int : 481 ms Poor data quality, interpretation may be adversely affected Atrial fibrillation Minimal voltage criteria for LVH, may be normal variant Anterior infarct , age undetermined Abnormal ECG No previous ECGs available Confirmed by Elijah Jones ([id number]) on 06/21/2022 1:11:00 PM Referred By: Yulisa Shell Confirmed By:Elijah Jones
[2022-06-22] MEDS: SODIUM CHLORIDE 0.9% 1000ML 1,000 ML IV SCH (04:23)
[2022-06-22 06:29] LABS: Basophils # (auto) 0.01 K/uL (0-0.2); Basophils % (auto) 0.1 %; Eosinophils # (auto) 0.01 K/uL (0-0.50); Eosinophils % (auto) 0.1 %; Hematocrit (blood only) 29.9 % (34.1-44.9); Hemoglobin 9.4 g/dl (12.0-16.0); Immature Granulocytes # (auto) 0.07 K/uL (0.00-0.02); Immature Granulocytes % (auto) 0.6 %; Lymphocytes # (auto) 0.77 K/uL (1.2-3.4); Lymphocytes % (auto) 6.9 %; Mean Corpuscular Hemoglobin 27.6 pg (25.0-34.0); Mean Corpuscular Hgb Conc 31.4 g/dL (32.0-36.0); Mean Corpuscular Volume 87.7 fL (80.0-100.0); Mean Platelet Volume 12.4 fL (9.4-12.3); Monocytes # (auto) 0.63 K/uL (0.24-0.82); Monocytes % (auto) 5.6 %; Neutrophils # (auto) 9.67 K/uL (1.4-6.5); Neutrophils % (auto) 86.7 %; Platelet Count 213 K/uL (130-400); RDW Coefficient of Variation 14.6 % (11.5-14.5); RDW Standard Deviation 46.8 fL (36.4-46.3); Red Blood Count 3.41 M/uL (3.93-5.22); White Blood Count 11.16 K/ul (4.8-10.8)
[2022-06-22 07:08] LABS: Albumin Globulin Ratio 1.3 (0.9-2); Albumin Level 3.2 gm/dl (3.4-5.0); BUN Creatinine Ratio 14.4 (10-20); Bilirubin,Total 0.5 mg/dl (0.2-1.0); Calcium 11.9 mg/dl (8.5-10.1); Creatinine Clr Calc Pharmacy 27.7 ml/min; Est GFR (African American) 23.1 ml/min; Est GFR (Non-African American) 19.9 ml/min; Globulin 2.5 gm/dl (2.5-4.0); Phosphorus 3.7 mg/dl (2.5-4.9); Potassium 3.8 mmol/L (3.5-5.1); Total Protein 5.7 gm/dl (6.0-8.3)
--- NOTE | 2022-06-22 07:08 | Hospitalist Progress Note ---
Date of Service June 22, 2022 Assessment & Plan (1) Hypercalcemia: Plan: Hypercalcemia - Calcium on admission= 13.1, ionized= 1.71; repeat this morning= 11.9, ionized= 1.72 - Symptomatically improving - She has a history of hypercalcemia and has been worked up extensively for it. Non-PTH mediated Thought to be secondary to possible granulomatous disease. Continue prednisone taper as per nephrology recommendations - 40 mg daily and decrease by 10 mg every 3 days and then continue on 10 mg daily Continue fluconazole 50 mg p.o. daily IV resuscitation with normal saline at 80 mL/h x 3 L; will stop fluids after she completes 3L Continue to trend chemistry with ionized calcium We will avoid treatment with calcitonin as patient felt ill after receiving it during her previous hospitalization Nephrology is following DM2 Patient with diabetes 2. Well-controlled with last hemoglobin A1c on 12/31/2021 = 6.5. Her home medications include empagliflozin as well as insulin aspart and glargine Lantus 18 units twice daily Insulin sliding scale Goal blood sugar 110-140 CKD4 Creatinine are near baseline (2.66; BL= 2.5-3.5). Patient reports adequate urine output. She has had an AV fistula placed in the left upper extremity and is waiting for maturity Avoid nephrotoxic agents Renal dosing were needed Continue to trend Gout Chronic. Stable. Continue allopurinol 100 mg p.o. daily Dyslipidemia Chronic. Stable. Continue atorvastatin 40 mg p.o. daily HTN Blood pressure well controlled Continue carvedilol 25 mg p.o. twice daily -Continue losartan 25 mg p.o. daily Continue to monitor Depression Chronic. Stable. Continue buspirone 5 mg p.o. 3 times daily Atrial Fibrillation Chronic. Rate controlled. Continue apixaban 5 mg p.o. twice daily Continue carvedilol 25 mg p.o. twice daily Ppx:continue home apixaban 5 mg p.o. daily for history of atrial fibrillation Codefull per discussion with patient (2) Diabetes type 2, controlled: (3) Chronic kidney disease, stage 4 (severe): (4) Dyslipidemia: (5) Gout: (6) Hypertension: (7) Depression: (8) Atrial fibrillation: Admission and Anticipated Discharge Date Admission Date: June 20, 2022 Supervising Physician Co-Signing Physician Notes I also saw the patient with the resident physician and confirmed mckinley portions of the history and physical examination. I agree with the impression and plan as noted in the resident documentation. Exam 148/78, 60, 16, 37 C, 97% room air Sleeping but easily awakens to voice. Talkative. No distress appreciated. Heart is regular Lungs are clear with nonlabored respirations Extremities with trace pedal edema bilaterally, right greater than left slightly (this is her baseline) Data WBC 11.16, hemoglobin 9.4, platelet count 213 Sodium 136, potassium 3.8, BUN 36, creatinine 2.5 Calcium 11.9, ionized calcium 1.72 Corrected calcium with respect to serum albumin, 12.5 Impression and Plan Hypercalcemia nephrology consult appreciated IV fluids, prednisone, fluconazole Trend BMP and iCa CKD-IV avoid nephrotoxic agents Else see resident documentation as noted. Subjective 62 year old female with a past medical history of CKD stage 4, DM, and hypercalcemia presenting with hypercalcemia. She has a history of hypercalcemia that she has been worked up for in the past. Not mediated by PTH. Elevated elevated 125 dihydroxy vitamin D level at 88 prior, normal parathyroid related peptide and SANDRA levels. Normal paraproteinemia workup, normal bone marrow biopsy. CT abdomen/pelvis slight lymphadenopathy. Working diagnosis is that it is secondary to granulomatous disease which has not been diagnosed. Follows with nephrology and treated with prednisone/fluconazole. Prednisone increased to 40mg taper on 06/19. Labs from that visit showed a calcium= 13.3 and she was instructed to come to ED. She is no longer having nausea or dizziness. Is having some mild cramping in her left leg. She denies any chest pain, LE edema, dyspnea. No complainants this morning. Review of Systems Review of Systems: As per HPI Physical Exam Physical Exam: Constitutional: well-appearing, no acute distress HEENT: NCAT, no conjunctival injection CV: regular rhythm, no murmur appreciated, extremities well-perfused, no LE edema Resp: CTABL, no wheezes/rales/rhonchi appreciated, no increased work of breathing GI: soft, nondistended, nontender, BS normoactive MSK: no gross deformities appreciated Skin: warm, dry, no rash appreciated Neuro: alert, oriented, no focal neurologic deficit appreciated Results & Data Results & Data ([facility]) Vital Signs (Past 12 Hours) Vital Signs Temp Pulse Resp BP Pulse Ox O2 Del Method 06/21/22 22:00 36.8 C 91 H 20 146/78 H 96 Room Air 06/21/22 21:17 36.7 C 71 18 138/79 94 Room Air Resident Activity Tracking Resident Involvement: Resident Care Provided Care Provided: Adult Hospital Medicine
[2022-06-22] MEDS: INSULIN ASPART PER UNIT SC SCH ×4 (08:43→21:59)
[2022-06-22] MEDS: LANTUS PER UNIT CHARGE SQ SCH ×2 (08:44→22:01)
[2022-06-22] MEDS: busPIRone 5 MG TAB PO SCH ×3 (08:48→22:02)
[2022-06-22] MEDS: POTASSIUM CHLORIDE CRTAB 20 MEQ TABCR PO SCH (08:48)
[2022-06-22] MEDS: APIXABAN 5 MG TABLET PO SCH ×2 (08:48→22:02)
[2022-06-22] MEDS: carvediloL 25 MG TAB PO SCH ×2 (08:48→22:02)
[2022-06-22] MEDS: allopurinoL 100 MG TAB PO SCH (08:49)
[2022-06-22] MEDS: ASPIRIN 81 MG ECTAB PO SCH (08:49)
[2022-06-22] MEDS: PANTOprazole 40 MG TAB PO SCH (08:49)
[2022-06-22] MEDS: LOSARTAN POTASSIUM 25 MG TAB PO SCH (08:49)
[2022-06-22] MEDS: ATORVASTATIN 40 MG TAB PO SCH (08:49)
[2022-06-22] MEDS: predniSONE 10 MG TABLET PO SCH (08:49)
[2022-06-22] MEDS: FLUCONAZOLE 50 MG TAB PO SCH (08:49)
[2022-06-22 09:31] LABS: Ferritin 16.5 ng/ml (8-388)
--- NOTE | 2022-06-22 10:20 | Nephrology Progress Note ---
Date of Service June 22, 2022 Assessment & Plan (1) Hypercalcemia: (2) Chronic kidney disease, stage 4 (severe): (3) Hypokalemia: (4) Fatigue: (5) Anemia due to chronic kidney disease: (6) Diabetes type 2, controlled: (7) Hypertension: Plan 62-year-old female with stage IV CKD secondary to diabetic nephropathy, baseline creatinine around 2.5-3. Developed a hypercalcemia over last few months and workup suggestive of non PTH mediated hypercalcemia secondary to possibly g ranulomatous disease although lymph node biopsy was not possible because of the small size and location. As previously she was on prednisone and Fluconazole with improvement in calcium however since prednisone was tapered off intracanal so was decreased because of hyperkalemia, recent lab showed a calcium again went up to close to 13. She was admitted to hospital yesterday for hypercalcemia and associated nonspecific symptoms. Also started back on prednisone and increase the Fluconazole. This morning she is feeling much better, repeat calcium level Improved to 12.4, corrected. Hb has been stable. -- continue on IV fluid, encouraged to increase fluid intake orally. okay to discontinue IV fluid later today or tomorrow. Expect calcium to continue to improve. -- Continue on fluconazole 50 mg daily and prednisone 40 mg daily and decrease by 10 mg every 3 days and then continue on 10 mg daily -- check renal function, electrolyte and calcium daily -- As she is feeling well, okay to be discharged by tomorrow if calcium continues to improve however, it feels like she would prefer to stay through tomorrow because of the again and difficulty to get transportation from her family. -- Check renal panel mid next week Will sign off and see her in office as scheduled. please contact with any further question or concerns. thank you. Admission and Anticipated Discharge Date Admission Date: June 20, 2022 Rebekah Javier was seen and examined this morning in her room. Overall she has been feeling well. Continued on IV fluid, denies any shortness of breath. Blood pressure has been well controlled. Calcium improved to 12.4,corrected. Renal function stable Review of Systems Review of Systems: detailed review of system was otherwise unremarkable. Physical Exam Constitutional: WD/WN, vitals as above no acute distress Eyes: + anicteric sclerae Respiratory: normal respiratory effort; no respiratory distress Auscultation: lungs clear to auscultation bilaterally Cardiovascular: Rate/Rhythm: regular rate and regular rhythm Heart Sounds: normal S1 and normal S2 Extremities: no edema Skin: no rashes Neurologic: no focal motor deficits and not confused Psychiatric: Orientation: alert and oriented x 3 Results & Data ([facility]) Vital Signs (Past 12 Hours) Vital Signs Temp Pulse Resp BP Pulse Ox O2 Del Method 06/22/22 10:05 37.0 C 60 16 148/78 H 97 Room Air 06/22/22 07:51 37.0 C 69 18 139/72 93 Room Air PG Care Time/CCT Total # of Minutes Spent Total Time Spent with Patient: Total time spent is greater than 50% in coordination of care (as documented) at patient's floor/unit and/or counseling patient: Coding Level of Care Code 67259 Subseq Hosp Care Lvl 3 Diagnoses Hypercalcemia E83.52 Chronic kidney disease, stage 4 (severe) N18.4 Hypokalemia E87.6 Fatigue R53.83 Anemia due to chronic kidney disease N18.9; D63.1 Diabetes type 2, controlled E11.9 Hypertension I10
--- NOTE | 2022-06-23 07:32 | Hospitalist Progress Note ---
Date of Service June 23, 2022 Assessment & Plan (1) Hypercalcemia: Plan: Hypercalcemia - Calcium on admission= 13.1, ionized= 1.71; repeat this morning= 11.8, ionized= 1.73 - She has a history of hypercalcemia and has been worked up extensively for it. Non-PTH mediated Thought to be secondary to possible granulomatous disease. - Symptomatically improving Continue fluconazole 50 mg p.o. daily IV resuscitation with normal saline at 80 mL/h x 3 L; completed yesterday Continue to trend chemistry with ionized calcium We will avoid treatment with calcitonin as patient felt ill after receiving it during her previous hospitalization - Discussed with nephrology and they recommend 1 dose 40mg IV Lasix today and to continue prednisone at 40mg until nephrology f/u; could need 40mg dose for up to 6-8 weeks and then decrease by 10mg a month. Goal of total calcium below 10.5 prior to discharge Will f/u with nephrology as an outpatient DM2 Patient with diabetes 2. Well-controlled with last hemoglobin A1c on 12/31/2021 = 6.5. Her home medications include empagliflozin as well as insulin aspart and glargine Lantus 18 units twice daily Insulin sliding scale Goal blood sugar 110-140 CKD4 Creatinine are near baseline (2.66; BL= 2.5-3.5). Patient reports adequate urine output. She has had an AV fistula placed in the left upper extremity and is waiting for maturity Avoid nephrotoxic agents Renal dosing were needed Continue to trend Gout Chronic. Stable. Continue allopurinol 100 mg p.o. daily Dyslipidemia Chronic. Stable. Continue atorvastatin 40 mg p.o. daily HTN Blood pressure well controlled Continue carvedilol 25 mg p.o. twice daily -Continue losartan 25 mg p.o. daily Continue to monitor Depression Chronic. Stable. Continue buspirone 5 mg p.o. 3 times daily Atrial Fibrillation Chronic. Rate controlled. Continue apixaban 5 mg p.o. twice daily Continue carvedilol 25 mg p.o. twice daily Ppx:continue home apixaban 5 mg p.o. daily for history of atrial fibrillation Codefull per discussion with patient (2) Diabetes type 2, controlled: (3) Chronic kidney disease, stage 4 (severe): (4) Dyslipidemia: (5) Gout: (6) Hypertension: (7) Depression: (8) Atrial fibrillation: Admission and Anticipated Discharge Date Admission Date: June 20, 2022 Supervising Physician Co-Signing Physician Notes Resident Physician Supervision Note: I independently interviewed and examined the patient and verified the mckinley history and physical, reviewed labs and image studies and agree with resident findings and care plan. Subjective 62 year old female with a past medical history of CKD stage 4, DM, and h ypercalcemia presenting with hypercalcemia. She has a history of hypercalcemia that she has been worked up for in the past. Not mediated by PTH. Elevated elevated 125 dihydroxy vitamin D level at 88 prior, normal parathyroid related peptide and SANDRA levels. Normal paraproteinemia workup, normal bone marrow biopsy. CT abdomen/pelvis slight lymphadenopathy. Working diagnosis is that it is secondary to granulomatous disease which has not been diagnosed. Follows with nephrology and treated with prednisone/fluconazole. Prednisone increased to 40mg taper on 06/19. Labs from that visit showed a calcium= 13.3 and she was instructed to come to ED. She is no longer having nausea or dizziness. Is having some mild cramping in her legs this morning, but she states that this is normal for her. . She denies any chest pain, LE edema, dyspnea. No complaints this morning. Review of Systems Review of Systems: As per HPI Physical Exam Physical Exam: Constitutional: well-appearing, no acute distress HEENT: NCAT, no conjunctival injection CV: regular rhythm, no murmur appreciated, extremities well-perfused, no LE edema Resp: CTABL, no wheezes/rales/rhonchi appreciated, no increased work of breathing GI: soft, nondistended, nontender, BS normoactive MSK: no gross deformities appreciated Skin: warm, dry, no rash appreciated Neuro: alert, oriented, no focal neurologic deficit appreciated Results & Data Results & Data ([facility]) Vital Signs (Past 12 Hours) Vital Signs Temp Pulse Resp BP Pulse Ox O2 Del Method 06/23/22 07:23 36.7 C 64 18 151/82 H 93 Room Air 06/22/22 21:00 Room Air 06/22/22 21:55 36.9 C 80 18 155/78 H 93 Room Air Resident Activity Tracking Resident Involvement: Resident Care Provided Care Provided: Adult [facility] Medicine
[2022-06-23 08:07] LABS: Basophils # (auto) 0.02 K/uL (0-0.2); Basophils % (auto) 0.2 %; Eosinophils # (auto) 0.03 K/uL (0-0.50); Eosinophils % (auto) 0.4 %; Hematocrit (blood only) 32.4 % (34.1-44.9); Hemoglobin 9.9 g/dl (12.0-16.0); Immature Granulocytes # (auto) 0.06 K/uL (0.00-0.02); Immature Granulocytes % (auto) 0.7 %; Lymphocytes # (auto) 1.01 K/uL (1.2-3.4); Lymphocytes % (auto) 11.9 %; Mean Corpuscular Hemoglobin 27.2 pg (25.0-34.0); Mean Corpuscular Hgb Conc 30.6 g/dL (32.0-36.0); Mean Platelet Volume 11.6 fL (9.4-12.3); Monocytes # (auto) 0.48 K/uL (0.24-0.82); Monocytes % (auto) 5.7 %; Neutrophils # (auto) 6.88 K/uL (1.4-6.5); Neutrophils % (auto) 81.1 %; Platelet Count 191 K/uL (130-400); RDW Coefficient of Variation 14.4 % (11.5-14.5); RDW Standard Deviation 46.3 fL (36.4-46.3); Red Blood Count 3.64 M/uL (3.93-5.22); White Blood Count 8.48 K/ul (4.8-10.8)
[2022-06-23] MEDS: ATORVASTATIN 40 MG TAB PO SCH (08:17)
[2022-06-23] MEDS: predniSONE 10 MG TABLET PO SCH (08:17)
[2022-06-23] MEDS: POTASSIUM CHLORIDE CRTAB 20 MEQ TABCR PO SCH (08:17)
[2022-06-23] MEDS: PANTOprazole 40 MG TAB PO SCH (08:17)
[2022-06-23] MEDS: carvediloL 25 MG TAB PO SCH ×2 (08:18→20:53)
[2022-06-23] MEDS: ASPIRIN 81 MG ECTAB PO SCH (08:18)
[2022-06-23] MEDS: LOSARTAN POTASSIUM 25 MG TAB PO SCH (08:18)
[2022-06-23] MEDS: busPIRone 5 MG TAB PO SCH ×3 (08:18→20:53)
[2022-06-23] MEDS: allopurinoL 100 MG TAB PO SCH (08:18)
[2022-06-23] MEDS: FLUCONAZOLE 50 MG TAB PO SCH (08:18)
[2022-06-23] MEDS: APIXABAN 5 MG TABLET PO SCH ×2 (08:18→20:53)
[2022-06-23 08:42] LABS: Albumin Globulin Ratio 1.4 (0.9-2); Albumin Level 3.4 gm/dl (3.4-5.0); BUN Creatinine Ratio 17.2 (10-20); Bilirubin,Total 0.4 mg/dl (0.2-1.0); Calcium 11.8 mg/dl (8.5-10.1); Creatinine Clr Calc Pharmacy 27.7 ml/min; Est GFR (African American) 23.1 ml/min; Est GFR (Non-African American) 19.9 ml/min; Globulin 2.5 gm/dl (2.5-4.0); Magnesium 1.9 mg/dl (1.7-2.4); Phosphorus 4.1 mg/dl (2.5-4.9); Total Protein 5.9 gm/dl (6.0-8.3)
[2022-06-23] MEDS: INSULIN ASPART PER UNIT SC SCH ×4 (09:24→20:45)
[2022-06-23] MEDS: LANTUS PER UNIT CHARGE SQ SCH ×2 (09:25→20:45)
[2022-06-23] MEDS ORDERED: FUROSEMIDE 40 MG/4 ML VIAL IV ONE (14:12)
[2022-06-24] MEDS: allopurinoL 100 MG TAB PO SCH (08:04)
[2022-06-24] MEDS: APIXABAN 5 MG TABLET PO SCH ×2 (08:05→20:48)
[2022-06-24] MEDS: ASPIRIN 81 MG ECTAB PO SCH (08:05)
[2022-06-24] MEDS: busPIRone 5 MG TAB PO SCH ×3 (08:05→20:48)
[2022-06-24] MEDS: ATORVASTATIN 40 MG TAB PO SCH (08:05)
[2022-06-24] MEDS: LOSARTAN POTASSIUM 25 MG TAB PO SCH (08:06)
[2022-06-24] MEDS: carvediloL 25 MG TAB PO SCH ×2 (08:06→20:49)
[2022-06-24] MEDS: FLUCONAZOLE 50 MG TAB PO SCH (08:06)
[2022-06-24] MEDS: predniSONE 10 MG TABLET PO SCH (08:06)
[2022-06-24] MEDS: PANTOprazole 40 MG TAB PO SCH (08:06)
[2022-06-24 08:10] LABS: Hematocrit (blood only) 32.7 % (34.1-44.9); Hemoglobin 10.8 g/dl (12.0-16.0); Mean Corpuscular Hemoglobin 28.4 pg (25.0-34.0); Mean Corpuscular Volume 86.1 fL (80.0-100.0); Mean Platelet Volume 12.3 fL (9.4-12.3); Platelet Count 210 K/uL (130-400); RDW Coefficient of Variation 14.5 % (11.5-14.5); RDW Standard Deviation 45.5 fL (36.4-46.3); White Blood Count 10.86 K/ul (4.8-10.8)
[2022-06-24] MEDS: POTASSIUM CHLORIDE CRTAB 20 MEQ TABCR PO SCH (08:12)
[2022-06-24 08:46] LABS: Albumin Globulin Ratio 1.4 (0.9-2); Albumin Level 3.6 gm/dl (3.4-5.0); BUN Creatinine Ratio 21.2 (10-20); Bilirubin,Total 0.4 mg/dl (0.2-1.0); Calcium 11.5 mg/dl (8.5-10.1); Creatinine Clr Calc Pharmacy 29.4 ml/min; Est GFR (African American) 24.8 ml/min; Est GFR (Non-African American) 21.4 ml/min; Globulin 2.6 gm/dl (2.5-4.0); Magnesium 1.7 mg/dl (1.7-2.4); Phosphorus 3.9 mg/dl (2.5-4.9); Potassium 3.6 mmol/L (3.5-5.1); Total Protein 6.2 gm/dl (6.0-8.3)
[2022-06-24] MEDS: LANTUS PER UNIT CHARGE SQ SCH ×2 (09:06→21:33)
[2022-06-24] MEDS: INSULIN ASPART PER UNIT SC SCH ×4 (09:06→21:33)
[2022-06-24] MEDS ORDERED: FUROSEMIDE 40 MG/4 ML VIAL IV ONE (09:07)
--- NOTE | 2022-06-24 10:25 | Hospitalist Progress Note ---
Date of Service June 24, 2022 Assessment & Plan (1) Hypercalcemia: Plan: Hypercalcemia - Calcium on admission= 13.1, ionized= 1.71; repeat this morning= 11.5, ionized= 1.63 - She has a history of hypercalcemia and has been worked up extensively for it. Non-PTH mediated Thought to be secondary to possible granulomatous disease. - Symptomatically improving Continue fluconazole 50 mg p.o. daily IV resuscitation with normal saline at 80 mL/h x 3 L; completed yesterday Continue to trend chemistry with ionized calcium We will avoid treatment with calcitonin as patient felt ill after receiving it during her previous hospitalization - Discussed with nephrology again today and they recommend another 40mg Iv Lasix in addition to IV fluids; will start NSS at 80ml/hr for a total of 2L -Continue prednisone at 40mg until nephrology f/u; could need 40mg dose for up to 6-8 weeks and then decrease by 10mg a month. Goal of total calcium below 10.5 prior to discharge Will f/u with nephrology as an outpatient DM2 Patient with diabetes 2. Well-controlled with last hemoglobin A1c on 12/31/2021 = 6.5. Her home medications include empagliflozin as well as insulin aspart and glargine Lantus 18 units twice daily Insulin sliding scale Goal blood sugar 110-140 - Elevated post prandial glucose secondary to prednisone; will increased correction factor to 15mg/dL/unit and leave carbohydrate ratio at 8 CKD4 Creatinine are near baseline (2.66; BL= 2.5-3.5). Patient reports adequate urine output. She has had an AV fistula placed in the left upper extremity and is waiting for maturity Avoid nephrotoxic agents Renal dosing were needed Continue to trend Gout Chronic. Stable. Continue allopurinol 100 mg p.o. daily Dyslipidemia Chronic. Stable. Continue atorvastatin 40 mg p.o. daily HTN Blood pressure well controlled Continue carvedilol 25 mg p.o. twice daily -Continue losartan 25 mg p.o. daily Continue to monitor Depression Chronic. Stable. Continue buspirone 5 mg p.o. 3 times daily Atrial Fibrillation Chronic. Rate controlled. Continue apixaban 5 mg p.o. twice daily Continue carvedilol 25 mg p.o. twice daily Ppx:continue home apixaban 5 mg p.o. daily for history of atrial fibrillation Codefull per discussion with patient (2) Diabetes type 2, controlled: (3) Chronic kidney disease, stage 4 (severe): (4) Dyslipidemia: (5) Gout: (6) Hypertension: (7) Depression: (8) Atrial fibrillation: Admission and Anticipated Discharge Date Admission Date: June 20, 2022 Supervising Physician Co-Signing Physician Notes Resident Physician Supervision Note: I independently interviewed and examined the patient and verified the mckinley history and physical, reviewed labs and image studies and agree with resident findings and care plan. Subjective 62 year old female with a past medical history of CKD stage 4, DM, and hypercalcemia presenting with hypercalcemia. She has a history of hypercalcemia that she has been worked up for in the past. Not mediated by PTH. Elevated elevated 125 dihydroxy vitamin D level at 88 prior, normal parathyroid related peptide and SANDRA levels. Normal paraproteinemia workup, normal bone marrow biopsy. CT abdomen/pelvis slight lymphadenopathy. Working diagnosis is that it is secondary to granulomatous disease which has not been diagnosed. Follows with nephrology and treated with prednisone/fluconazole. Prednisone increased to 40mg taper on 06/19. Labs from that visit showed a calcium= 13.3 and she was instructed to come to ED. She is no longer having nausea or dizziness. Continues to have some cramping in her left leg, states that she often gets cramps in the legs at home too. Relieved with Tylenol and changing positions. She denies any chest pain, LE edema, dyspnea. Review of Systems Review of Systems: As per HPI Physical Exam Physical Exam: Constitutional: well-appearing, no acute distress HEENT: NCAT, no conjunctival injection CV: regular rhythm, no murmur appreciated, extremities well-perfused, no LE edema Resp: CTABL, no wheezes/rales/rhonchi appreciated, no increased work of breathing GI: soft, nondistended, nontender, BS normoactive MSK: no gross deformities appreciated Skin: warm, dry, no rash appreciated Neuro: alert, oriented, no focal neurologic deficit appreciated Results & Data Results & Data ([facility]) Vital Signs (Past 12 Hours) Vital Signs Temp Pulse Resp BP Pulse Ox O2 Del Method 06/24/22 07:41 36.6 C 73 18 149/91 H 96 Room Air Resident Activity Tracking Resident Involvement: Resident Care Provided Care Provided: Adult [facility] Medicine
[2022-06-24] MEDS: SODIUM CHLORIDE 0.9% 1000ML 1,000 ML IV SCH ×2 (10:32→21:35)
--- NOTE | 2022-06-25 06:52 | Hospitalist Progress Note ---
Date of Service June 25, 2022 Assessment & Plan (1) Hypercalcemia: Plan: Hypercalcemia - Calcium on admission= 13.1, ionized= 1.71; repeat this morning= 11.5, ionized= 1.63 - She has a history of hypercalcemia and has been worked up extensively for it. Non-PTH mediated Thought to be secondary to possible granulomatous disease. - Symptomatically improving Continue fluconazole 50 mg p.o. daily IV resuscitation with normal saline at 80 mL/h x 3 L; completed yesterday Continue to trend chemistry with ionized calcium We will avoid treatment with calcitonin as patient felt ill after receiving it during her previous hospitalization - Discussed with nephrology again today and they recommend another 40mg Iv Lasix in addition to IV fluids; will start NSS at 80ml/hr for a total of 2L -Continue prednisone at 40mg until nephrology f/u; could need 40mg dose for up to 6-8 weeks and then decrease by 10mg a month. Goal of total calcium below 10.5 prior to discharge Will f/u with nephrology as an outpatient DM2 Patient with diabetes 2. Well-controlled with last hemoglobin A1c on 12/31/2021 = 6.5. Her home medications include empagliflozin as well as insulin aspart and glargine Lantus 18 units twice daily Insulin sliding scale Goal blood sugar 110-140 - Elevated post prandial glucose secondary to prednisone; will increased correction factor to 15mg/dL/unit and leave carbohydrate ratio at 8 CKD4 Creatinine are near baseline (2.66; BL= 2.5-3.5). Patient reports adequate urine output. She has had an AV fistula placed in the left upper extremity and is waiting for maturity Avoid nephrotoxic agents Renal dosing were needed Continue to trend Gout Chronic. Stable. Continue allopurinol 100 mg p.o. daily Dyslipidemia Chronic. Stable. Continue atorvastatin 40 mg p.o. daily HTN Blood pressure well controlled Continue carvedilol 25 mg p.o. twice daily -Continue losartan 25 mg p.o. daily Continue to monitor Depression Chronic. Stable. Continue buspirone 5 mg p.o. 3 times daily Atrial Fibrillation Chronic. Rate controlled. Continue apixaban 5 mg p.o. twice daily Continue carvedilol 25 mg p.o. twice daily Ppx:continue home apixaban 5 mg p.o. daily for history of atrial fibrillation Codefull per discussion with patient (2) Diabetes type 2, controlled: (3) Chronic kidney disease, stage 4 (severe): (4) Dyslipidemia: (5) Gout: (6) Hypertension: (7) Depression: (8) Atrial fibrillation: Admission and Anticipated Discharge Date Admission Date: June 20, 2022 Subjective 62 year old female with a past medical history of CKD stage 4, DM, and hypercalcemia presenting with hypercalcemia. She has a history of hypercalcemia that she has been worked up for in the past. Not mediated by PTH. Elevated elevated 125 dihydroxy vitamin D level at 88 prior, normal parathyroid related peptide and SANDRA levels. Normal paraproteinemia workup, normal bone marrow biopsy. CT abdomen/pelvis slight lymphadenopathy. Working diagnosis is that it is secondary to granulomatous disease which has not been diagnosed. Follows with nephrology and treated with prednisone/fluconazole. Prednisone increased to 40mg taper on 06/19. Labs from that visit showed a calcium= 13.3 and she was instructed to come to ED. She is no longer having nausea or dizziness. Continues to have some cramping in her left leg, states that she often gets cramps in the legs at home too. Relieved with Tylenol and changing positions. She denies any chest pain, LE edema, dyspnea. Review of Systems Review of Systems: As per HPI Physical Exam Physical Exam: Constitutional: well-appearing, no acute distress HEENT: NCAT, no conjunctival injection CV: regular rhythm, no murmur appreciated, extremities well-perfused, no LE ed ash Resp: CTABL, no wheezes/rales/rhonchi appreciated, no increased work of breathing GI: soft, nondistended, nontender, BS normoactive MSK: no gross deformities appreciated Skin: warm, dry, no rash appreciated Neuro: alert, oriented, no focal neurologic deficit appreciated Results & Data Results & Data ([facility]) Vital Signs (Past 12 Hours) Vital Signs Temp Pulse Resp BP Pulse Ox O2 Del Method 06/24/22 22:06 36.7 C 87 16 145/74 H 96 Room Air
[2022-06-25] MEDS: predniSONE 10 MG TABLET PO SCH (08:32)
[2022-06-25] MEDS: POTASSIUM CHLORIDE CRTAB 20 MEQ TABCR PO SCH (08:32)
[2022-06-25] MEDS: ATORVASTATIN 40 MG TAB PO SCH (08:32)
[2022-06-25] MEDS: carvediloL 25 MG TAB PO SCH (08:32)
[2022-06-25] MEDS: ASPIRIN 81 MG ECTAB PO SCH (08:32)
[2022-06-25] MEDS: FLUCONAZOLE 50 MG TAB PO SCH (08:32)
[2022-06-25] MEDS: allopurinoL 100 MG TAB PO SCH (08:32)
[2022-06-25] MEDS: LOSARTAN POTASSIUM 25 MG TAB PO SCH (08:32)
[2022-06-25] MEDS: APIXABAN 5 MG TABLET PO SCH (08:33)
[2022-06-25] MEDS: busPIRone 5 MG TAB PO SCH ×2 (08:33→12:44)
[2022-06-25] MEDS: PANTOprazole 40 MG TAB PO SCH (08:33)
[2022-06-25 08:44] LABS: Hematocrit (blood only) 33.3 % (34.1-44.9); Hemoglobin 10.7 g/dl (12.0-16.0); Mean Corpuscular Hemoglobin 27.5 pg (25.0-34.0); Mean Corpuscular Hgb Conc 32.1 g/dL (32.0-36.0); Mean Corpuscular Volume 85.6 fL (80.0-100.0); Mean Platelet Volume 12.7 fL (9.4-12.3); Platelet Count 228 K/uL (130-400); RDW Coefficient of Variation 14.6 % (11.5-14.5); RDW Standard Deviation 45.1 fL (36.4-46.3); Red Blood Count 3.89 M/uL (3.93-5.22); White Blood Count 10.33 K/ul (4.8-10.8)
[2022-06-25] MEDS: INSULIN ASPART PER UNIT SC SCH ×2 (08:58→12:43)
[2022-06-25] MEDS: LANTUS PER UNIT CHARGE SQ SCH (09:02)
[2022-06-25 09:10] LABS: Albumin Globulin Ratio 1.3 (0.9-2); Albumin Level 3.8 gm/dl (3.4-5.0); BUN Creatinine Ratio 23.6 (10-20); Bilirubin,Total 0.5 mg/dl (0.2-1.0); Calcium 11.2 mg/dl (8.5-10.1); Creatinine Clr Calc Pharmacy 28.2 ml/min; Est GFR (African American) 23.5 ml/min; Est GFR (Non-African American) 20.3 ml/min; Globulin 2.9 gm/dl (2.5-4.0); Magnesium 1.6 mg/dl (1.7-2.4); Phosphorus 3.9 mg/dl (2.5-4.9); Potassium 3.5 mmol/L (3.5-5.1); Total Protein 6.7 gm/dl (6.0-8.3)
[2022-06-25] MEDS ORDERED: predniSONE 10 MG TABLET PO STA (09:52)
[2022-06-25] MEDS ORDERED: SODIUM CHLORIDE 0.9% 1000ML 1,000 ML IV SCH (10:30)
--- NOTE | 2022-06-25 15:21 | Discharge Summary ---
Date of Service June 25, 2022 Admission HPI Per Admitting Provider Concepcion Soliman is a 62yo female with history of CKD stage 4, DM, and hypercalcemia presenting with hypercalcemia. Patient with history of hypercalcemia for which she has had extensive work-up in the past. Her hypercalcemia is not PTH mediated. She was found to have an elevated 125 dihydroxy vitamin D level at 88 in the past. She has had normal parathyroid related peptide and SANDRA levels as well as paraproteinemia work-up. She had a bone marrow biopsy performed which was unremarkable. She has CT of the abdomen and pelvis that showed slight increase in chest and upper abdominal lymphadenopathy. Patient's hypercalcemia thought to be secondary to granulomatous disease, thus far undiagnosed. She was seen by surgery at [facility] for possible lymph node biopsy which was not performed due to small siz e and complicate locations of her nodes. Patient follows with Nephrology, last seen on 06/19/2022. She has been treated with prednisone as well as fluconazole for her hypercalcemia. During her most recent visit on 06/19/2022 her prednisone was increased from 10 mg daily to 40 mg taper (40 mg x 3 days, 30 mg x 3 days, 20 mg x 3 days then 10 mg daily) she was also restarted on her oral fluconazole. Labs were obtained which revealed calcium of 13.3. She had a normal iron panel, and normal 25 hydroxy vitamin D level and a low PTH intact level. Patient was instructed to come to the hospital for her elevated calcium level. Patient was recently mated to [facility] from 05/26/2022 to 05/31/2022 for hypercalcemia. She does report receiving calcitonin during that hospital stay after which she became ill. She was discharged on Lasix. Patient does complain of occasional leg cramps as well as persistent nausea, dizziness and imbalance. She denies fevers, chills, chest pain, cough, shortn ess of breath, abdominal pain, vomiting or diarrhea. Denies constipation. She states that her food does not taste good and she has not been eating well at home resulting in approximately 25 pounds of unintentional weight loss since May 2022. No additional complaints at this time Admission Exam Per Admitting Provider General: patient resting comfortably, NAD, non-toxic in appearance, AA&O x 4 Skin: warm, dry, intact, no rashes or lesions HEENT: NC/AT, PERRL, EOMI, anicteric sclera, conjunctiva without injection, external ear normal to inspection and nontender, nares patent, dry mucus membranes, dentition intact, no oropharyngeal lesions, neck supple, trachea midline, no LAD, no thyromegaly, no JVD Heart: +S1/S2, regular, no m/r/g Lungs: equal air entry bilaterally, no rales/rhonchi/wheezes Abd: +BS, soft, NT/ND, no masses/organomegaly/ascites Ext: warm, 2+ pulses in UE/LE bilaterally, no clubbing/cyanosis or edema Neuro: nonfocal, patient AA&O x 4, speech intact, no facial droop, moving all extremities on command with equal strength 5/5 Principal Diagnosis General: patient resting comfortably, NAD, non-toxic in appearance, AA&O x 4 Skin: warm, dry, intact, no rashes or lesions HEENT: NC/AT, PERRL, EOMI, anicteric sclera, conjunctiva without injection, external ear normal to inspection and nontender, nares patent, dry mucus membranes, dentition intact, no oropharyngeal lesions, neck supple, trachea midline, no LAD, no thyromegaly, no JVD Heart: +S1/S2, regular, no m/r/g Lungs: equal air entry bilaterally, no rales/rhonchi/wheezes Abd: +BS, soft, NT/ND, no masses/organomegaly/ascites Ext: warm, 2+ pulses in UE/LE bilaterally, no clubbing/cyanosis or edema Neuro: nonfocal, patient AA&O x 4, speech intact, no facial droop, moving all extremities on command with equal strength 5/5 Discharge Exam Constitutional: well-appearing, no acute distress HEENT: NCAT, no conjunctival injection CV: regular rhythm, no murmur appreciated, extremities well-perfused, no LE edema Resp: CTABL, no wheezes/rales/rhonchi appreciated, no increased work of breathing GI: soft, nondistended, nontender, BS normoactive MSK: no gross deformities appreciated Skin: warm, dry, no rash appreciated Neuro: alert, oriented, no focal neurologic deficit appreciated Discharge Data Allergies Allergy/AdvReac Type Severity Reaction Status Date / Time clarithromycin Allergy Unknown Unverified 06/20/22 11:09 ibuprofen Allergy Verified 06/20/22 11:09 diltiazem [From Cardizem] AdvReac Unknown Headache Unverified 06/20/22 11:09 metformin AdvReac Unknown Nausea Unverified 06/20/22 11:09 naproxen AdvReac Unknown hives Unverified 06/20/22 11:09 nifedipine AdvReac Unknown Headache Unverified 06/20/22 11:09 quinapril AdvReac Unknown Cough Unverified 06/20/22 11:09 Consultations 06/21/22 07:38 Consult Nephrology Routine Hospital Course (1) Hypercalcemia: Hypercalcemia - Calcium on admission= 13.1, ionized= 1.71; on discharge total calcium= 11.2, ionized= 1.55 - She has a history of hypercalcemia and has been worked up extensively for it. Non-PTH mediated Thought to be secondary to possible granulomatous disease. - Symptomatically improving Continue fluconazole 50 mg p.o. daily Received IV fluids and Lasix during admission We will avoid treatment with calcitonin as patient felt ill after receiving it during her previous hospitalization - Discussed with nephrology and they recommend continuing prednisone at 40mg until nephrology f/u; could need 40mg dose for up to 6-8 weeks and then decrease by 10mg a month. Discussed with nephrology on day of discharge and they felt she was stable to go with current calcium level Will f/u with nephrology as an outpatient DM2 Patient with diabetes 2. Well-controlled with last hemoglobin A1c on 12/31/2021 = 6.5. Her home medications include empagliflozin as well as insulin aspart and glargine - Will resume home medications upon discharge. If blood glucose is elevated secondary to prednisone use she will reach out to PCP to discuss adjustment of medications CKD4 Creatinine are near baseline (2.66; BL= 2.5-3.5). Patient reports adequate urine output. She has had an AV fistula placed in the left upper extremity and is waiting for maturity Avoid nephrotoxic agents Renal dosing were needed Gout Chronic. Stable. Continue allopurinol 100 mg p.o. daily Dyslipidemia Chronic. Stable. Continue atorvastatin 40 mg p.o. daily HTN Blood pressure well controlled Continue carvedilol 25 mg p.o. twice daily -Continue losartan 25 mg p.o. daily Depression Chronic. Stable. Continue buspirone 5 mg p.o. 3 times daily Atrial Fibrillation Chronic. Rate controlled. Continue apixaban 5 mg p.o. twice daily Continue carvedilol 25 mg p.o. twice daily (2) Diabetes type 2, controlled: (3) Chronic kidney disease, stage 4 (severe): (4) Dyslipidemia: (5) Gout: (6) Hypertension: (7) Depression: (8) Atrial fibrillation: Total Time Total Time Spent Total Time Spent (In Minutes): <30 Discharge Plan Discharge Items Patient Disposition: Home - Self-Care Reason For Visit: HYPERCALCEMIA Discharge Diagnosis: Hypercalcemia Activity: Resume your previous activity Non-emergency contact: Primary Care Provider and Product Marketing Director Call non-emergency contact if: you have any medication questions and your symptoms worsen Follow-up/Referrals: Yulisa Shell MD [Physician] - 06/27/22 12:30 pm Camilo Grossman D.O. [Primary Care Provider] - 07/02/22 2:00 pm (Appointment will be with ) Diet: Regular Addtl Attending Provider Instructions: You were admitted to the hospital for hypercalcemia. You were treated with prednisone, fluconazole, IV fluids and diuretics. You were seen by the nephrologists. We are going to send a prescription to your pharmacy for prednisone which we would like you to continue at 40mg until your follow up with nephrology. We would like you to continue taking the fluconazole to further help with lowering your calcium. If your symptoms return; increased cramping, nausea, vomiting; please contact your PCP or jeep driver. Continue your diabetes medications as you normally take them. The Prednisone can cause higher blood sugars, if you are noticing higher blood sugars you should contact your primary care provider to discuss if your medications need to be adjusted. A discharge summary will be sent to your primary care physician to ensure continuity of care. Please bring this discharge summary with you to your next office appointment so that your provider can review it at that time. Follow-up appointments: We have requested a follow-up appointment with your primary care physician within one week of discharge. Please call their office if you do not hear from them.We also requested an appointment with you jeep driver. Pending Studies at Discharge: No Stand-Alone Forms: My [facility] [employer] Medications and DC Order Prescriptions: New prednisone 20 mg Tablet 40 mg PO DAILY 30 Days Qty: 60 0RF Continued (DME) pen needle, diabetic [BD Lucinda 2nd Gen Pen Needle] 32 gauge x 5/32" needle See Rx Instructions .Route Qty: 500 3RF Rx Instructions: use 5 x daily with insulin Basaglar KwikPen U-100 Insulin 100 unit/mL (3 mL) insulin pen 32 unit SQ BID Qty: 60 1RF pantoprazole [Protonix] 40 mg tablet,delayed release (DR/EC) 40 mg PO DAILY Qty: 30 11RF potassium chloride 20 mEq tablet extended release 20 meq PO DAILY Qty: 30 2RF Rx Instructions: Please take 2 tab bid today and then continue 1 tab daily. Jardiance 10 mg tablet 10 mg PO DAILY Qty: 90 3RF atorvastatin [Lipitor] 40 mg tablet 40 mg PO DAILY insulin aspart U-100 [Novolog Flexpen U-100 Insulin] 100 unit/mL (3 mL) insulin pen See Rx Instructions subcut TID Rx Instructions: 10-20 units 1:2 carb ratio TDD 100 units subcut three times a day; aspirin [Adult Low Dose Aspirin] 81 mg tablet,delayed release (DR/EC) 81 mg PO DAILY buspirone 5 mg tablet 5 mg PO TID carvedilol 25 mg tablet 25 mg PO BID Rx Instructions: must administer with a meal/food losartan 50 mg tablet 25 mg PO DAILY fluconazole 50 mg tablet 50 mg PO DAILY Qty: 90 3RF Eliquis 5 mg tablet 5 mg PO BID bupropion HCl [Wellbutrin XL] 150 mg tablet extended release 24 hr 150 mg PO QAM allopurinol 100 mg tablet 100 mg PO DAILY venlafaxine 150 mg capsule,extended release 24hr 150 mg PO DAILY Discontinued prednisone 10 mg tablet 40 mg PO DAILY Rx Instructions: Taper: 40mg po daily x 3, 30mg po daily x 3, 20mg po daily x 3 then 10mg PO dailyl Discharge Orders: Discharge Order (Routine); Ordered 06/25/22 Ordered By: Nanette Cuellar Admission Data Admit Date/Time: 06/20/22 22:16 Attending Provider: Terence Nicole Admit Provider: Lisa Beaulieu Primary Care Provider: Camilo Grossman Other Providers: Yulisa Shell ; Marc Koehler Other Interventions: Discharge Summary Assessment (RN) Last Done: 06/25/22 14:24 Supervising Physician Co-Signing Physician Notes I personally examined the patient and verified all mckinley points of history and exam, discussed case, and agree with decision making with Dr Cuellar feeling OK wants to go home vitals noted nad heent nc at mmm breathing unlabored no accessory muscles good effort hypercalcemia - ?granulomatous - symptoms have resolved. safe/stable for home. as per nephrology recommendations. otherwise as above Resident Activity Tracking Resident Involvement: Resident Care Provided Care Provided: Adult Hospital Medicine
[2022-06-26] MEDS ORDERED: predniSONE 20 MG TAB PO SCH (09:00)
== END 2022-06-25 14:50 | disposition home or self-care (01) | DRG 641 ==
LOC: ED 18:50 → 2N 22:16 → SUATTDRO 22:16 → 2N 06-21 01:27 → 3W 06-22 10:01